=== PATIENT | male | born 1930 | race Caucasian/White ===

== ENCOUNTER 2016-06-14 11:58 | Emergency (ER) | payer MEDICARE, OTHER ==
[2016-06-14 12:13] VITALS: BP 148/81
[2016-06-14] MEDS ORDERED: Metoclopramide 10 MG/2 ML SDV IVPUSH ONE (12:28)
[2016-06-14] MEDS ORDERED: Sodium Chloride 0.9% 1,000 ML IV SCH (12:30)
--- NOTE | 2016-06-14 12:31 | EDM.PDOC ---
ED HISTORY OF PRESENT ILLNESS - General Chief Complaint: Cardiovascular Problem Stated Complaint: DIZZY Time Seen by Provider: 06/14/16 12:20 Source of Information: Reports: Patient, Family (spouse) History Limitations: Reports: No limitations - History of Present Illness INITIAL COMMENTS - FREE TEXT/NARRATIVE: 85-year-old male attends the ED accompanied by his . He reports sudden onset of severe vertigo or off kilter feeling while driving in the car. He was the passenger . He and his about driving doing various areas of her going to go to the car wash when he instructed to take him home. Was able to divide she continued to feel unwell and advised her to bring him to medical care. He stopped the [facility] and they were advised to bring him to the hospital. He denies any headache. Denies any nausea or vomiting. He can remember ever having a similar type episode. It is symptoms are improved if he is not moving. Is not walked over since symptoms developed. He was it got into a wheelchair from the car and wheeled into the hospital. He denies any recent falls or head injuries. No recent changes to his medications. Somewhat worried about his pacemaker as he is due to have it replaced due to low battery. Currently has been in place for about 10 years. Symptom Onset Date: 06/14/16 Symptom Onset Time: 11:30 Timing/Duration: Reports: Minutes:, Sudden onset Severity: moderate - Related Data Allergies/ADRs: Allergies Allergy/AdvReac Type Severity Reaction Status Date / Time codeine Allergy "BLACKED Verified 06/14/16 12:13 OUT" Penicillins Allergy "BLACKED Verified 06/14/16 12:13 OUT" Home Meds: Home Meds Aspirin [Ecotrin] 81 mg PO DAILY 09/01/14 [History] Lisinopril [Lisinopril] 5 mg PO DAILY 09/01/14 [History] Loratadine [Claritin] 10 mg PO DAILY 09/01/14 [History] Nitroglycerin [Nitrostat] 0.4 mg SL ASDIRECTED PRN 09/01/14 [History] Omeprazole [Omeprazole] 20 mg PO DAILY 09/01/14 [History] Pravastatin [Pravachol] 40 mg PO DAILY 09/01/14 [History] Sertraline [Zoloft] 50 mg PO DAILY 09/01/14 [History] Meclizine [Antivert] 12.5 mg PO TID #15 tablet 06/14/16 [Rx] Past Medical History Cardiovascular History: Reports: Hypertension, Pacemaker Other Gastrointestinal History: Hx of gastric ulcers, none now (had surgery) Other Musculoskeletal History: Muscle aches - Past Surgical History Cardiovascular Surgical History: Reports: Carotid stents, Coronary artery bypass , Pacer Other Cardiovascular Surgeries/Procedures: Pacemaker placement Other GI Surgeries/Procedures: Gastric ulcer surgery in 90ies Social & Family History - Living Situation & Occupation Living situation: Reports: , with spouse Occupation: retired ED ROS GENERAL - Review of Systems Review Of Systems: See Below Constitutional: Reports: weakness. Denies: fever, chills, malaise, fatigue, decreased appetite, weight loss HEENT: Reports: Vertigo, Vision change. Denies: Ear pain, Eye pain, Hearing loss, Nosebleed, Sinus problem, Throat pain Respiratory: Denies: Shortness of Breath (Feels blurry it hard to focus. Social with the vertigo symptoms), Wheezing, Pleuritic Chest Pain, Cough, Sputum Cardiovascular: Reports: Blood pressure problem (Mild hypertension well controlled with medication), Other (Has a pacemaker in place x10 years. Apparently the battery is quite low and he is due to have it changed.). Denies : Chest pain Endocrine: Reports: no symptoms GI/Abdominal: Denies: Abdominal pain, Anorexia, Nausea, Stool incontinence, Vomiting : Reports: frequency, other (Nocturia usually 3 times nightly) Musculoskeletal: Reports: back pain, joint pain Skin: Reports: no symptoms (Knee pain and hip pain at times sometimes in his neck and shoulders as well) Neurological: Reports: Dizziness (Vertigo this morning. Occurred while driving in a motor vehicle as a passenger.), Headache. Denies: Confusion, Seizure, Syncope Psychiatric: Reports: No symptoms Hematologic/Lymphatic: Reports: no symptoms Immunologic: Reports: no symptoms ED EXAM, GENERAL - Physical Exam Exam: See Below Exam Limited By: No limitations General Appearance: alert, WD/WN, no apparent distress Eye Exam: bilateral eye: nystagmus (Mild on right lateral gaze.), PERRL, other ( No diplopia on exam. No gaze palsy. He does have slight ptosis of his left upper eyelid.) Ears: other (There is cerumen impaction bilaterally worse on the left and I cannot visualize the tympanic membrane on the left side. Visualized portions of the tympanic membrane on the right are normal. Ears are going to require irrigation.) Throat/Mouth: Normal inspection, Normal lips, Normal teeth, Normal oropharynx, Other (Uvula normal) Head: atraumatic, normocephalic Neck: normal inspection, supple, non-tender, full range of motion. No: carotid bruit, lymphadenopathy (L), lymphadenopathy (R), thyromegaly Respiratory/Chest: no respiratory distress, lungs clear, normal breath sounds, no accessory muscle use, other ( pacemaker left upper anterior chest.) Cardiovascular: normal peripheral pulses, regular rate, rhythm (Monitor shows 100% paced rhythm at 60 per minute), no edema, no murmur Peripheral Pulses: 1+: posterior tibial (L), posterior tibial (R), dorsalis pedis (L), dorsalis pedis (R) GI/Abdominal: normal bowel sounds, soft, non tender, no organomegaly, no distention Back Exam: normal inspection, full range of motion. No: CVA tenderness (L), CVA tenderness (R) Extremities: normal inspection, normal range of motion, non-tender, no pedal edema, normal capillary refill Neurological: alert, oriented, CN II-XII intact, normal cognition, normal gait, no motor/sensory deficits, other (Absent ankle jerks. No problems with finger to nose rapid alternating movements. Cranial nerves 2-12 are intact. Nodes of CVA. Power tone upper and lower extremities is normal.). No: memory loss remote events, abnormal reflexes Psychiatric: normal affect, normal mood Skin Exam: Warm, Dry, Intact, Normal color, No rash EKG INTERPRETATION EKG Date: 06/14/16 Time: 12:55 Rhythm: other (100% AV paced rhythm at 60 per minute) Rate (beats/min): 60 [place]: LAD-left axis deviation (-82) P-wave: absent QRS: wide ST-T: normal QT: prolonged EKG Interpretation Comments: No Further analysis attempted due to to 100% paced rhythm. Course - Vital Signs Last Recorded V/S: Last Vital Signs Temp 37.0 C 06/14/16 12:07 Pulse 66 06/14/16 12:07 Resp 16 06/14/16 12:07 BP 148/81 H 06/14/16 12:07 Pulse Ox 98 06/14/16 12:07 - Orders/Labs/Meds Orders: Active Orders 24 hr Category Date Time Status EKG Documentation Completion [RC] STAT Care 06/14/16 12:34 Active Ear Irrigation [RC] ASDIRECTED Care 06/14/16 12:29 Active Sodium Chloride 0.9% [Normal Saline] 1,000 ml Med 06/14/16 12:30 Active IV ASDIRECTED Medication Orders Sodium Chloride (Normal Saline) 1,000 mls @ 150 mls/hr IV ASDIRECTED NANCI Last Admin: 06/14/16 12:47 Dose: 150 mls/hr Labs: Laboratory Tests 06/14/16 06/14/16 06/14/16 Range/Units 12:39 12:39 12:39 WBC 5.80 (4.23-9.07) K/mm3 RBC 4.69 (4.63-6.08) M/mm3 Hgb 14.0 (13.7-17.5) gm/L Hct 42.9 (40.1-51.0) % MCV 91.5 (79.0-92.2) fl MCH 29.9 (25.7-32.2) pg MCHC 32.6 (32.2-35.5) g/dl RDW Std Deviation 43.4 (35.1-43.9) fL Plt Count 182 (163-337) K/mm3 MPV 9.9 (9.4-12.3) fl Neutrophils % (Manual) 64 H (40-60) % Band Neutrophils % 1 (0-10) % Lymphocytes % (Manual) 24 (20-40) % Atypical Lymphs % 0 % Monocytes % (Manual) 8 (2-10) % Eosinophils % (Manual) 3 (0.8-7.0) % Basophils % (Manual) 0 L (0.2-1.2) Platelet Estimate Adequate RBC Morph Comment Normal Sodium 143 (136-145) mEq/L Potassium 3.8 (3.5-5.1) mEq/L Chloride 107 (98-107) mEq/L Carbon Dioxide 28 (21-32) mEq/L Anion Gap 11.8 (5-15) BUN 15 (7-18) mg/dL Creatinine 1.2 (0.7-1.3) mg/dL Est Cr Clr Drug Dosing 42.52 mL/min Estimated GFR (MDRD) 57 (>60) mL/min BUN/Creatinine Ratio 12.5 L (14-18) Glucose 72 L (83-115) mg/dL Calcium 8.9 (8.5-10.1) mg/dL Magnesium 2.3 (1.8-2.4) mg/dl Total Bilirubin 1.1 H (0.2-1.0) mg/dL AST 14 L (15-37) U/L ALT 17 (16-63) U/L Alkaline Phosphatase 91 (46-116) U/L CK-MB (CK-2) 1.2 (0-3.6) ng/ml Troponin I 0.021 (0.00-0.056) ng/mL C-Reactive Protein < 0.2 (<1.0) mg/dL Total Protein 7.3 (6.4-8.2) g/dl Albumin 4.0 (3.4-5.0) g/dl Globulin 3.3 gm/dL Albumin/Globulin Ratio 1.2 (1-2) Meds: Medications Generic Name Dose Route Start Last Admin Trade Name Freq PRN Reason Stop Dose Admin Sodium Chloride 1,000 mls @ 150 mls/hr 06/14/16 12:30 06/14/16 12:47 Normal Saline IV 150 mls/hr ASDIRECTED NANCI Administration Discontinued Medications Generic Name Dose Route Start Last Admin Trade Name Freq PRN Reason Stop Dose Admin Metoclopramide HCl 7.5 mg 06/14/16 12:28 06/14/16 12:48 Reglan IVPUSH 06/14/16 12:29 7.5 mg ONETIME ONE Administration - Radiology Interpretation Free Text/Narrative:: 85-year-old male presents the ED with sudden onset of vertigo symptoms. He recognizes is hard to focus and felt for a period of time that he may have had some diplopia. However he is eye examination shows no gaze palsy he does have some mild my statements somewhat lateral and upward gaze. The remainder of his neural exam is completely normal. He has cerumen impaction in both ears that could be causing some of the vertigo. Pituitary on the left side. Plan is to the CT of his head done with routine lab work including a troponin. We'll have his ear is irrigated with warm water. Treated with normal saline at 150 mils per hour and Reglan 7.5 mg IV. Once his ears have been irrigated will try and get him up walking and see how he does with his balance. - Re-Assessments/Exams Free Text/Narrative Re-Assessment/Exam: 06/14/16 13:14 CT head reveals age-appropriate changes with small vessel ischemic changes in the basal ganglia. No infarcts or bleeding is evident. No cerebellar infarct identified. 06/14/16 13:51 lab work is back and shows a normal white count at 5.80 with a normal differential. Hemoglobin is 14.0 with hematocrit of 42.9. Platelets normal 182,000. Chemistry is normal other than gross low-normal at 72. Nurses are still struggling trying to get the wax out of his left ear canal. Will use 50-50 hydrogen peroxide and water and see how that works. Also give him something to drink and eat to raise his blood sugar. Once the ear wax is cleared from his left ear canal we'll get him up walking and see how his balance is . 06/14/16 14:52 patient had good luck on removal of the cerumen impaction bilaterally. Come up walking he had no difficulties walking or problems with gait or ataxia. He will therefore be discharged home. He will use Antivert 12.5 mg every 8 hours for the next 5 days if he develops any further attacks of vertigo. If he doesn't develop any further attacks then I would leave well enough alone as the cerumen impaction is been relieved out of his left ear. Departure - Departure Time of Disposition: 14:52 Disposition: Home, Self-Care 01 Condition: fair Clinical Impression: Benign paroxysmal positional vertigo of left ear Prescriptions: Meclizine [Antivert] 12.5 mg PO TID #15 tablet Referrals: To Bland MD [Primary Care Provider] - Forms: ED Department Discharge Additional Instructions: Evaluation in the emergency room today in regards to development of sudden onset of vertigo a sense of being off balance and trouble focusing vision. This occurred while driving a motor vehicle. Lab tests were all normal and CT of the brain also proved to be negative for any pathology. There are age-appropriate changes in the brain. We did identify significant cerumen impaction against the eardrum on the left side. Catheters were therefore irrigated to remove as much lung as possible as this sometimes can be a cause of the vertigo. At this point I would like to adopt a wait and see approach. If further vertigo symptoms continue such as getting in and out of bed then fill prescription for Antivert and take 12.5 mg every 8 hours for the next 5 days to settle the vertigo event down. 85% of patients are usually better within 5 days from the time of onset. Of note that she did this once you're likely to get it again in the future. - My Orders Last 24 Hours: My Active Orders 06/14/16 12:29 Ear Irrigation [RC] ASDIRECTED 06/14/16 12:30 Sodium Chloride 0.9% [Normal Saline] 1,000 ml IV ASDIRECTED 06/14/16 12:34 EKG Documentation Completion [RC] STAT - Assessment/Plan Last 24 Hours: My Active Orders 06/14/16 12:29 Ear Irrigation [RC] ASDIRECTED 06/14/16 12:30 Sodium Chloride 0.9% [Normal Saline] 1,000 ml IV ASDIRECTED 06/14/16 12:34 EKG Documentation Completion [RC] STAT
--- NOTE | 2016-06-14 13:23 | CT ---
Head CT Technique: Multiple axial sections through the brain were obtained. Intravenous contrast was not utilized. Comparison: Previous head CT study of 11/10/12. Findings: Ventricles along with basal cisterns and sulci over the convexities are moderately prominent. Diminished density is noted within portions of the periventricular and subcortical white matter which is compatible with small vessel ischemic demyelination change. No other abnormal parenchymal densities are seen. No evidence of intracranial hemorrhage. No midline shift or mass effect is seen. Visualized sinuses are clear. No acute calvarial abnormality is seen. Impression: 1. Senescent change as described above which has slightly progressed from previous exam. 2. No acute intracranial abnormality is identified on noncontrast head CT study. Diagnostic code #2
== END 2016-06-14 15:00 | disposition home or self-care (01) ==
LOC: JD.ED 11:58
DX: H81.12 Benign paroxysmal vertigo, left ear (principal); I10 Essential (primary) hypertension; Z95.1 Presence of aortocoronary bypass graft; Z98.890 Other specified postprocedural states; Z79.82 Long term (current) use of aspirin; Z79.899 Other long term (current) drug therapy; Z88.0 Allergy status to penicillin; Z88.5 Allergy status to narcotic agent
CPT/HCPCS: 36415; 69210; 70450; 80053; 82553; 83735; 84484; 85025; 86140; 93005; 96361; 96374; 99285; J2765; J7040; 69209; 99284

== ENCOUNTER 2016-06-15 19:57 | Inpatient (IN) | payer MEDICARE, OTHER ==
[2016-06-15] MEDS ORDERED: Ondansetron 4 MG/2 ML SDV IVPUSH ONE (20:10)
--- NOTE | 2016-06-15 20:17 | EDM.PDOC ---
ED HPI NEURO - General Chief Complaint: Neuro Symptoms/Deficits Stated Complaint: [facility] Time Seen by Provider: 06/15/16 20:01 Source of Information: Reports: Patient, Family History Limitations: Reports: No limitations - History of Present Illness INITIAL COMMENTS - FREE TEXT/NARRATIVE: This is an 85-year-old male. Tonight his noted that he was complaining of being lightheaded like he was going to pass out. He was wobbly on his feet and she tried to get into the car but he couldn't make it. When he sat down in a chair she noted that his legs were jerking a little bit and he closed his eyes but she doesn't think he passed out. At that time she did not check his pulse. He was noted then to be hard to arouse though he was breathing appropriately. She called the ambulance when they arrived he was awake he was talking he though he might have been slightly confused and they noted some mild drooping to the left side of his face. When he arrived in the ER he seemed to be oriented to place to did not know the month but thought it was August or September. Does not appear to be in acute distress he is not complaining of a headache. He is moving all 4 extremities. The tells me that she is concerned about his pacemaker because the battery might be low since he's had it for 10 years and is due to be replaced. The patient was seen yesterday for episode of vertigo when he was a passenger in a car that his was driving he was evaluated in the ER yesterday for those symptoms. Tonight on the way to the ER and arrival to the ER he had nausea and vomiting that resolved with Zofran. He denies any dizziness at this time. He appears to be conversational and he recognizes his and he is in no acute distress. It should be noted that yesterday he was noted by the ER physician to have some mild drooping of the left upper eyelid which is still present tonight. The faint drooping of the left side of his face and mouth has resolved at this time. It resolved about 10 minutes after arrival. He has at no time any extremity weakness or flaccidness. His NIH score is 3 point arrival. When I asked the patient what he meant by dizziness and gave him the option of the room spinning versus lightheaded like he was going to pass out he said he was lightheaded like he was going to pass out. - Related Data Allergies/ADRs: Allergies Allergy/AdvReac Type Severity Reaction Status Date / Time codeine AdvReac "BLACKED Verified 06/15/16 20:09 OUT" Penicillins AdvReac "BLACKED Verified 06/15/16 20:09 OUT" Home Meds: Home Meds Aspirin [Ecotrin] 81 mg PO DAILY 09/01/14 [History] Lisinopril [Lisinopril] 5 mg PO DAILY 09/01/14 [History] Loratadine [Claritin] 10 mg PO DAILY 09/01/14 [History] Nitroglycerin [Nitrostat] 0.4 mg SL ASDIRECTED PRN 09/01/14 [History] Omeprazole [Omeprazole] 20 mg PO DAILY 09/01/14 [History] Pravastatin [Pravachol] 40 mg PO DAILY 09/01/14 [History] Sertraline [Zoloft] 50 mg PO DAILY 09/01/14 [History] Meclizine [Antivert] 12.5 mg PO TID #15 tablet 06/14/16 [Rx] Past Medical History Cardiovascular History: Reports: Hypertension, Pacemaker Other Gastrointestinal History: Hx of gastric ulcers, none now (had surgery) Other Musculoskeletal History: Muscle aches - Past Surgical History Cardiovascular Surgical History: Reports: Carotid stents, Coronary artery bypass , Pacer Other Cardiovascular Surgeries/Procedures: Pacemaker placement Other GI Surgeries/Procedures: Gastric ulcer surgery in 90ies Social & Family History - Tobacco Use Smoking Status *Q: Never Smoker - Caffeine Use Caffeine Use: Reports: Soda - Recreational Drug Use Recreational Drug Use: No - Living Situation & Occupation Living situation: Reports: , with spouse Occupation: retired ED ROS GENERAL - Review of Systems Review Of Systems: See Below Constitutional: Denies: fever, chills HEENT: Reports: Vertigo. Denies: Eye discharge, Eye pain Respiratory: Denies: Shortness of Breath, Cough Cardiovascular: Denies: Chest pain, Edema GI/Abdominal: Reports: Nausea, Vomiting. Denies: Abdominal pain, Diarrhea : Reports: no symptoms Musculoskeletal: Reports: other (Denies any extremity weakness) Skin: Reports: no symptoms Neurological: Reports: Confusion, Dizziness. Denies: Headache, Syncope, Trouble Speaking Psychiatric: Reports: No symptoms Hematologic/Lymphatic: Reports: no symptoms ED EXAM, NEURO - Physical Exam Exam: See Below Exam Limited By: No limitations General Appearance: alert, WD/WN, no apparent distress Eye Exam: left eye: proptosis (He is noted to have some ptosis of the left upper eyelid I was noted yesterday as well), bilateral eye: normal inspection, PERRL, vision changes (States he sees fine right now), other (Sitting at approximately 30 and moving his head to the left and to the right he did not experience any sort of dizziness and there was no noted nystagmus) Ears: normal external exam, normal canal, normal TMs Nose: normal inspection Throat/Mouth: Normal voice, No airway compromise, Other (Initially when he came in he seemed to have a slight droop to the left side of his mouth when he showed his teeth but that has resolved at this time) Head Exam: atraumatic, normocephalic. No: facial swelling Neck: normal inspection, supple, non-tender. No: carotid bruit Respiratory/Chest: no respiratory distress, lungs clear, normal breath sounds, other (Pace maker is in the left anterior chest) Cardiovascular: regular rate, rhythm, no murmur, other (Pace maker is noted in the left anterior chest) GI/Abdominal: normal bowel sounds, soft, non tender. No: tender Neurological: alert, other (Initially patient had a difficult time with orientation as to time frame though he knew he was in the hospital, he guessed 86 for his age was actually 85 he was correct about his time being 63 years. Initially again he seemed to have some mild drooping when he first came in to the ER of the left side of his mouth when he showed his teeth however within 5-10 minutes of being here that seemed to resolve. Is not appear to have any weakness in his upper or lower extremities and has full function. Reflexes in the lower extremities appear to be intact, NIH score done by the nurse was 3. ) Back Exam: full range of motion Extremities: normal inspection, normal range of motion, no pedal edema Psychiatric: normal affect, normal mood. No: anxious Skin Exam: Warm, Dry EKG INTERPRETATION EKG Date: 06/15/16 Time: 20:00 Rhythm: other (This is an AV dual paced rhythm appears to have good capture on the EKG) EKG Interpretation Comments: Dual pacemaker with complete capture on the EKG, cannot permit any acute changes with a pacemaker. Course - Vital Signs Last Recorded V/S: Last Vital Signs Temp 97.4 F 06/15/16 20:03 Pulse 77 06/15/16 20:03 Resp 18 06/15/16 20:03 BP 176/101 H 06/15/16 20:03 Pulse Ox 94 L 06/15/16 20:03 - Orders/Labs/Meds Orders: Active Orders 24 hr Category Date Time Status EKG 12 Lead [EKG Documentation Completion] [RC] STAT Care 06/15/16 20:04 Active Head wo Cont [CT] Stat Exams 06/15/16 20:02 Taken Labs: Laboratory Tests 06/15/16 06/15/16 06/15/16 Range/Units 20:01 20:01 20:01 WBC 8.02 (4.23-9.07) K/mm3 RBC 4.70 (4.63-6.08) M/mm3 Hgb 14.0 (13.7-17.5) gm/L Hct 42.7 (40.1-51.0) % MCV 90.9 (79.0-92.2) fl MCH 29.8 (25.7-32.2) pg MCHC 32.8 (32.2-35.5) g/dl RDW Std Deviation 43.9 (35.1-43.9) fL Plt Count 194 (163-337) K/mm3 MPV 9.6 (9.4-12.3) fl Neut % (Auto) 48.5 (34.0-67.9) % Lymph % (Auto) 37.7 (21.8-53.1) % [place] % (Auto) 11.2 (5.3-12.2) % Eos % (Auto) 2.0 (0.8-7.0) Baso % (Auto) 0.5 (0.1-1.2) % Neut # (Auto) 3.89 (1.78-5.38) K/mm3 Lymph # (Auto) 3.02 (1.32-3.57) K/mm3 [place] # (Auto) 0.90 H (0.30-0.82) K/mm3 Eos # (Auto) 0.16 (0.04-0.54) K/mm3 Baso # (Auto) 0.04 (0.01-0.08) K/mm3 PT 10.2 (8.0-13.0) SECONDS INR 0.94 Sodium 144 (136-145) mEq/L Potassium 3.9 (3.5-5.1) mEq/L Chloride 106 (98-107) mEq/L Carbon Dioxide 27 (21-32) mEq/L Anion Gap 14.9 (5-15) BUN 14 (7-18) mg/dL Creatinine 1.2 (0.7-1.3) mg/dL Est Cr Clr Drug Dosing 42.75 mL/min Estimated GFR (MDRD) 57 (>60) mL/min BUN/Creatinine Ratio 11.7 L (14-18) Glucose 99 (83-115) mg/dL POC Glucose (83-110) mg/dL Calcium 9.1 (8.5-10.1) mg/dL Total Bilirubin 0.9 (0.2-1.0) mg/dL AST 15 (15-37) U/L ALT 17 (16-63) U/L Alkaline Phosphatase 98 (46-116) U/L Troponin I < 0.017 (0.00-0.056) ng/mL Total Protein 7.5 (6.4-8.2) g/dl Albumin 4.2 (3.4-5.0) g/dl Globulin 3.3 gm/dL Albumin/Globulin Ratio 1.3 (1-2) /06/27 Range/Units 20:06 WBC (4.23-9.07) K/mm3 RBC (4.63-6.08) M/mm3 Hgb (13.7-17.5) gm/L Hct (40.1-51.0) % MCV (79.0-92.2) fl MCH (25.7-32.2) pg MCHC (32.2-35.5) g/dl RDW Std Deviation (35.1-43.9) fL Plt Count (163-337) K/mm3 MPV (9.4-12.3) fl Neut % (Auto) (34.0-67.9) % Lymph % (Auto) (21.8-53.1) % [place] % (Auto) (5.3-12.2) % Eos % (Auto) (0.8-7.0) Baso % (Auto) (0.1-1.2) % Neut # (Auto) (1.78-5.38) K/mm3 Lymph # (Auto) (1.32-3.57) K/mm3 [place] # (Auto) (0.30-0.82) K/mm3 Eos # (Auto) (0.04-0.54) K/mm3 Baso # (Auto) (0.01-0.08) K/mm3 PT (8.0-13.0) SECONDS INR Sodium (136-145) mEq/L Potassium (3.5-5.1) mEq/L Chloride (98-107) mEq/L Carbon Dioxide (21-32) mEq/L Anion Gap (5-15) BUN (7-18) mg/dL Creatinine (0.7-1.3) mg/dL Est Cr Clr Drug Dosing mL/min Estimated GFR (MDRD) (>60) mL/min BUN/Creatinine Ratio (14-18) Glucose (83-115) mg/dL POC Glucose 101 (83-110) mg/dL Calcium (8.5-10.1) mg/dL Total Bilirubin (0.2-1.0) mg/dL AST (15-37) U/L ALT (16-63) U/L Alkaline Phosphatase (46-116) U/L Troponin I (0.00-0.056) ng/mL Total Protein (6.4-8.2) g/dl Albumin (3.4-5.0) g/dl Globulin gm/dL Albumin/Globulin Ratio (1-2) Meds: Medications Discontinued Medications Generic Name Dose Route Start Last Admin Trade Name Freq PRN Reason Stop Dose Admin Ondansetron HCl 4 mg 06/15/16 20:10 06/15/16 20:02 Zofran IVPUSH 06/15/16 20:11 4 mg ONETIME ONE Administration - Radiology Interpretation Free Text/Narrative:: CT scan of the head shows chronic changes with no acute intercranial process. Looking at this and the CT scan done yesterday they appear to be very similar - Re-Assessments/Exams Free Text/Narrative Re-Assessment/Exam: 06/15/16 20:43 When the patient first arrived to the ER and was placed on a monitor he appeared to have a heart rate in the 40s but went directly up into the 60s with full capture. He's had dual chamber pacemaker it appeared to have good capture on the EKG and the monitor though initially the heart rate might have been well. The is very concerned about his pacemaker because it is 10 years old and it is due to be changed by his merchandising stock associate Dr. Aburto. 06/15/16 20:45 We attempted to interrogate the pacemaker with the new machine that we have here in the ER but it failed to function properly. 06/15/16 21:43 A called [facility] requesting to speak to a neurosurgeon but one call connected me with a neurologist because everything goes through the neurologist. When I spoke to Dr. Restrepo the neurologist and gave him the complete history of the events prior to coming to the ER and in the ER itself. He stated that if these symptoms have resolved there is nothing more to do and the patient needs to be in for observation and do an echo of his heart and carotid studies. I asked the neurologist if a neurosurgeon wasn't available for consult and he indicated that he is the first line or admission and it is no neurosurgeon for me to talk to at this time. 06/15/16 22:[address] Burton initially and she felt the patient should go to [facility] to see the interventionalist Dr. Wilcox because of the possibility of a TIA. I called [facility] one call and I spoke to a Dr. Restrepo, you can see the conversation above. Then I spoke to Dr. Wilcox and since there is a possibility of a TIA tonight he wanted the patient to go to [place] but not by airplane but by ground. I then spoke to the hospitalist Dr. Garcia who was concerned about the travel time for this patient but because Dr. Wilcox wanted him admitted to the internal medicine doctor agreed to accept the patient in transport to [facility] in [place]. I then spoke to the family and they were concerned about the trip to [place] and whether it was absolutely necessary. I gave him the information from my talk with the doctors in [facility]. I then spoke to their son who is an qa lead in [place] and they would prefer the patient not to go to [place] and would like him admitted to this facility for observation. I then spoke to Dr. Burton explaining the entire situation and she agrees to admit the patient for monitoring and further evaluation. Departure - Departure Time of Disposition: 22:45 Disposition: Admitted As Inpatient 65 Condition: good Clinical Impression: Pre-syncope TIA (transient ischemic attack) Qualifiers: Transient cerebral ischemia type: unspecified Qualified Code(s): G45.9 - Transient cerebral ischemic attack, unspecified Pacemaker complications Qualifiers: Encounter type: initial encounter Qualified Code(s): T82.9XXA - Unspecified complication of cardiac and vascular prosthetic device, implant and graft, initial encounter Additional Instructions: I spoke to Dr. Burton she is willing to accept the patient for admission to this facility. - My Orders Last 24 Hours: My Active Orders 06/15/16 20:02 Head wo Cont [CT] Stat 06/15/16 20:04 EKG 12 Lead [EKG Documentation Completion] [RC] STAT - Assessment/Plan Last 24 Hours: My Active Orders 06/15/16 20:02 Head wo Cont [CT] Stat 06/15/16 20:04 EKG 12 Lead [EKG Documentation Completion] [RC] STAT
[2016-06-15] MEDS ORDERED: Enoxaparin 30 MG/0.3 ML Syringe SUBCUT ONE (23:45)
--- NOTE | 2016-06-16 09:15 | PCM.HP ---
H&P History of Present Illness - General Date of Service: 06/16/16 Admit Problem/Dx: Admission Diagnosis/Problem Admission Diagnosis/Problem TIA, Transient ischemic attack Source of Information: Patient, Family History Limitations: Reports: No limitations - History of Present Illness Initial Comments - Free Text/Narative: 85 year old male PMH CAD/CABG denies a prior history of TIA/CVA presents after an episode of confusion. He has generalized weakness, at this time his face is symmetrical. He had facial asymmetry noted by his , she reported it as left sided. This was not noted on physical exam by the ED staff or hospitalist service. 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 The working diagnosis was TIA cf pacemaker malfunction. However ECG documents appropriate capture. He was to have been transferred to [facility] accepted by Dr Wilcox; this was cancelled after the patient and family decided not to travel the distance. The patient and his spouse discussed the option of staying versus signing out against medical advice. He has decided to stay for more additional testing as part of the CVA protocol. Onset of Symptoms: Reports: sudden Symptom Onset Date: 06/15/16 Duration of Symptoms: Reports: Hour(s):, Getting worse Location: Reports: generalized Severity: moderate Improves with: Reports: None Worsens with: Reports: None Associated Symptoms: Reports: confusion, nausea/vomiting, other (vertigo) - Related Data Allergies/Adverse Reactions: Allergies Allergy/AdvReac Type Severity Reaction Status Date / Time codeine AdvReac "BLACKED Verified 06/15/16 20:09 OUT" Penicillins AdvReac "BLACKED Verified 06/15/16 20:09 OUT" Home Medications: Home Meds Lisinopril 5 mg PO DAILY 09/01/14 [History] Nitroglycerin [Nitrostat] 0.4 mg SL ASDIRECTED PRN 09/01/14 [History] Omeprazole 20 mg PO DAILY 09/01/14 [History] Pravastatin [Pravachol] 40 mg PO DAILY 09/01/14 [History] Aspirin [Ecotrin] 325 mg PO DAILY #10 tab.ec 06/17/16 [Rx] Enoxaparin [Lovenox] 40 mg SUBCUT DAILY #10 syringe 06/17/16 [Rx] hydrALAZINE [Apresoline] 20 mg IVPUSH Q8H PRN #14 sdv 06/17/16 [Rx] Past Medical History Cardiovascular History: Reports: Hypertension, Pacemaker Other Gastrointestinal History: Hx of gastric ulcers, none now (had surgery) Other Musculoskeletal History: Muscle aches Psychiatric History: Reports: Dementia - Past Surgical History Cardiovascular Surgical History: Reports: Carotid stents, Coronary artery bypass , Pacer Other Cardiovascular Surgeries/Procedures: Pacemaker placement Other GI Surgeries/Procedures: Gastric ulcer surgery in 90ies Social & Family History - Family History Family Medical History: Noncontributory - Tobacco Use Smoking Status *Q: Never Smoker Second Hand Smoke Exposure: No - Caffeine Use Caffeine Use: Reports: Other Other Caffeine Use: rarely will have a soda or coffee - Recreational Drug Use Recreational Drug Use: No - Living Situation & Occupation Living situation: Reports: , with spouse Occupation: retired H&P Review of Systems - Review of Systems: Review Of Systems: See Below General: Reports: weakness HEENT: Reports: no symptoms Pulmonary: Reports: No Symptoms Cardiovascular: Reports: no symptoms Gastrointestinal: Reports: No symptoms Genitourinary: Reports: no symptoms Musculoskeletal: Reports: no symptoms Skin: Reports: no symptoms Psychiatric: Denies: confusion Neurological: Reports: Confusion, Dizziness, Weakness, Other (vertigo) Hematologic/Lymphatic: Reports: no symptoms Immunologic: Reports: no symptoms Exam - Exam Exam: See Below - Vital Signs Vital Signs: Last Vital Signs Temp 37.0 C 06/16/16 07:54 Pulse 60 06/16/16 07:54 Resp 16 06/16/16 07:54 BP 158/99 H 06/16/16 07:54 Pulse Ox 94 L 06/16/16 07:54 Weight: 66.814 kg - Exam Quality Assessment: DVT prophylaxis General: alert, oriented, cooperative HEENT: Conjunctiva clear, EOMI, Nares patent, Normal nasal septum, Pupils equal , Pupils reactive, PERRLA Neck: supple, trachea midline Lungs: Normal respiratory effort Cardiovascular: regular rate, regular rhythm Abdomen: normal bowel sounds, soft (Male) Exam: Deferred Rectal (Males) Exam: Deferred Back Exam: normal inspection Extremities: normal pulses Skin: warm Neurological: cranial nerves intact, reflexes equal bilateral, strength equal bilateral Neuro Extensive - Mental Status: alert, oriented x3, normal mood/affect, normal cognition, memory intact Neuro Extensive - Motor, Sensory, Reflexes: CN II-XII intact Psychiatric: alert, normal affect, normal mood - Patient Data Result Diagrams: 06/17/16 03:06 06/17/16 03:06 *Q Meaningful Use (ADM) - VTE *Q VTE Criteria *Q: - Stroke *Q Stroke Criteria *Q: - AMI *Q AMI Criteria *Q: - Problem List (1) Pre-syncope SNOMED Code(s): 565246710 ICD Code: R55 - SYNCOPE AND COLLAPSE Status: Acute Current Visit: Yes (2) TIA (transient ischemic attack) SNOMED Code(s): 029010136, 575445372 ICD Code: G45.9 - TRANSIENT CEREBRAL ISCHEMIC ATTACK, UNSPECIFIED Status: Acute Current Visit: Yes Qualifiers: Transient cerebral ischemia type: unspecified Qualified Code(s): G45.9 - Transient cerebral ischemic attack, unspecified Problem List Initiated/Reviewed/Updated: Yes Orders Last 24hrs: Active Orders 24 hr Category Date Time Status Admission Status [Patient Status] [ADT] Routine ADT 06/16/16 00:11 Active Antiembolic Devices [RC] PER UNIT ROUTINE Care 06/15/16 23:25 Active Aspiration Precautions [RC] ASDIRECTED Care 06/15/16 23:16 Active Bedrest [RC] ASDIRECTED Care 06/15/16 23:27 Active Neuro Check [RC] Q4HR Care 06/15/16 23:24 Active Consult to Occupational Therapy [OT Evaluation and Cons 06/16/16 09:01 Active Treatment] [CONS] Routine Consult to Physical Therapy [PT Evaluation and Cons 06/16/16 09:00 Active Treatment] [CONS] Routine NPO Now [Nothing per Oral Now Diet] [DIET] Diet 06/16/16 Breakfast Active CBC W/O DIFF,HEMOGRAM [HEME] MOTH@0700 Lab 06/18/16 07:00 Ordered CBC W/O DIFF,HEMOGRAM [HEME] MOTH@0700 Lab 06/21/16 07:00 Ordered CBC W/O DIFF,HEMOGRAM [HEME] MOTH@0700 Lab 06/25/16 07:00 Ordered CBC W/O DIFF,HEMOGRAM [HEME] MOTH@0700 Lab 06/28/16 07:00 Ordered CBC W/O DIFF,HEMOGRAM [HEME] MOTH@0700 Lab 07/02/16 07:00 Ordered CBC W/O DIFF,HEMOGRAM [HEME] MOTH@0700 Lab 07/05/16 07:00 Ordered Antiembolic Hose [OM.PC] Routine Oth 06/15/16 23:25 Ordered Code Status [Resuscitation Status] Routine Resus Stat 06/16/16 00:09 Ordered Assessment/Plan Comment:: Impression: TIA Hypertension Hyperlipidemia CAD, history of CABG S/P PPM approaching KERWIN Plan: CVA protocol Consult SW/CM/PT/OT Neurochecks Aspiration precautions DVT/GI prophylaxis
[2016-06-16] MEDS ORDERED: Nitroglycerin 0.4 MG Tab.SL SL PRN (18:34)
[2016-06-16] MEDS ORDERED: Aspirin 325 MG Tab.EC PO SCH (18:45)
[2016-06-16] MEDS ORDERED: hydrALAZINE 20 MG/ML SDV IVPUSH PRN (20:26)
[2016-06-16] MEDS ORDERED: diphenhydrAMINE 25 MG Cap PO SCH (21:00)
[2016-06-16] MEDS ORDERED: Meclizine 12.5 MG Tab PO SCH (21:00)
[2016-06-16] MEDS ORDERED: Simvastatin 20 MG Tab PO SCH (21:00)
[2016-06-16] MEDS ORDERED: Lisinopril 5 MG Tab PO SCH (21:00)
[2016-06-17 02:34] VITALS: BP 151/74
[2016-06-17] MEDS ORDERED: Pantoprazole 40 MG Tab.CR PO SCH (07:00)
[2016-06-17] MEDS ORDERED: Lisinopril 5 MG Tab PO SCH (09:00)
[2016-06-17] MEDS ORDERED: Simvastatin 20 MG Tab PO SCH (09:00)
[2016-06-17] MEDS ORDERED: Enoxaparin 40 MG/0.4 ML Syringe SUBCUT SCH (09:00)
--- NOTE | 2016-06-17 15:16 | PCM.DCSUM1 ---
Discharge Summary - Hospital Course HPI Initial Comments: 85 year old male was transferred to [facility] after a change in his neuro exam by the midnight nurse, Rosalba; the last unremarkable exam was around midnight. Between [id number], the patient was assessed and more confused, a focal neuro exam was noted. He had had similar complaints 18-24 hours prior to the current presentation. He was admitted as a TIA evaluation, originally he was accepted for transfer by Dr Wilfredo Wilcox, neurosurgeon/neuro- interventionalist at [facility]. However the patient and family declined and the patient remained at [facility]. The change in neuro status resulted in a call to [facility] once again for TIA/CVA work up and treatment not available in [place]. He was accepted for transfer for a higher level of neuro care at approximately 0415 hour. Accepting neurologist is Dr Restrepo, the remaining logistics was provided by the [employer] who apparently had taken the previous call when the family declined transfer. Prior to my arrival, I spoke to Dr Huang Figueroa who was kind enough to monitor and assess the patient. Upon arrival after my assessment, the patient was moved to a room closer to the nurses station. His spouse had been notified, and upon arrival a 5 minute/brief meeting ensued which resulted in pursuit of transfer to [place] for a higher level of care for a TIA/CVA as previously mentioned. Exam: RLE weakness, right sided facial droop, garbled speech; stroke scale, 8. CT of the head without contrast was repeated before transfer was unremarkable for a CVA. The patient has a PPM and history of CAD/CABG. Primary Dx TIA/CVA Condition Stable Activity Bedrest Diet NPO Meds See list on APR Disposition Transfer to [facility] Neurology/Neurosurgery care - Discharge Data Discharge Date: 06/17/16 Discharge Disposition: DC/Tfer to Acute Hospital 02 Condition: Good - Discharge Diagnosis/Problem(s) (1) Pre-syncope SNOMED Code(s): 465299997 ICD Code: R55 - SYNCOPE AND COLLAPSE Status: Acute (2) TIA (transient ischemic attack) SNOMED Code(s): 125761640, 748666096 ICD Code: G45.9 - TRANSIENT CEREBRAL ISCHEMIC ATTACK, UNSPECIFIED Status: Acute Qualifiers: Transient cerebral ischemia type: unspecified Qualified Code(s): G45.9 - Transient cerebral ischemic attack, unspecified - Patient Summary/Data Consults: Consultations 06/16/16 09:00 Consult to Physical Therapy [PT Evaluation and Treatment] [CONS] Routine 06/16/16 09:01 Consult to Occupational Therapy [OT Evaluation and Treatment] [CONS] Routine 06/16/16 10:00 Consult to Speech Language Pathology [MANAGER CLEANING Evaluation and Treatment] [CONS] Routine - Patient Instructions Diet: NPO Activity: Bedrest Driving: Do Not Drive Showering/Bathing: No Showering - Discharge Plan Prescriptions/Med Rec: Aspirin [Ecotrin] 325 mg PO DAILY #10 tab.ec Enoxaparin [Lovenox] 40 mg SUBCUT DAILY #10 syringe hydrALAZINE [Apresoline] 20 mg IVPUSH Q8H PRN #14 sdv PRN Reason: SBP>160 Home Medications: Home Meds Lisinopril 5 mg PO DAILY 09/01/14 [History] Nitroglycerin [Nitrostat] 0.4 mg SL ASDIRECTED PRN 09/01/14 [History] Omeprazole 20 mg PO DAILY 09/01/14 [History] Pravastatin [Pravachol] 40 mg PO DAILY 09/01/14 [History] Aspirin [Ecotrin] 325 mg PO DAILY #10 tab.ec 06/17/16 [Rx] Enoxaparin [Lovenox] 40 mg SUBCUT DAILY #10 syringe 06/17/16 [Rx] hydrALAZINE [Apresoline] 20 mg IVPUSH Q8H PRN #14 sdv 06/17/16 [Rx] Referrals: To Bland MD [Primary Care Provider] - - Discharge Summary/Plan Comment DC Time >30 min.: Yes (Transfer to [facility] for CVA) - General Info Date of Service: 06/16/16 Functional Status: Reports: urinating - Review of Systems General: Reports: Other (lethargic with garbled speech) HEENT: Reports: no symptoms Pulmonary: Reports: no symptoms Cardiovascular: Reports: No Symptoms Gastrointestinal: Reports: No symptoms Genitourinary: Reports: no symptoms Musculoskeletal: Reports: no symptoms Skin: Reports: no symptoms Neurological: Reports: Confusion, Trouble Speaking, Weakness Psychiatric: Reports: no symptoms - Patient Data Vitals - Most Recent: Last Vital Signs Temp 36.6 C 06/17/16 02:25 Pulse 72 06/17/16 02:25 Resp 16 06/17/16 02:25 BP 151/74 H 06/17/16 02:25 Pulse Ox 96 06/17/16 02:25 Weight - Most Recent: 66.814 kg I&O - Last 24 hours: Intake & Output 06/16/16 06/17/16 06/17/16 22:59 06:59 14:59 Intake Total 720 300 Output Total 1050 Balance -330 300 Lab Results - Last 24 hrs: Laboratory Results - last 24 hr 06/17/16 06/17/16 Range/Units 03:06 03:06 WBC 7.08 (4.23-9.07) K/mm3 RBC 4.75 (4.63-6.08) M/mm3 Hgb 14.0 (13.7-17.5) gm/L Hct 43.1 (40.1-51.0) % MCV 90.7 (79.0-92.2) fl MCH 29.5 (25.7-32.2) pg MCHC 32.5 (32.2-35.5) g/dl RDW Std Deviation 42.8 (35.1-43.9) fL Plt Count 176 (163-337) K/mm3 MPV 9.9 (9.4-12.3) fl Neut % (Auto) 72.2 H (34.0-67.9) % Lymph % (Auto) 17.9 L (21.8-53.1) % Sargent % (Auto) 8.3 (5.3-12.2) % Eos % (Auto) 0.8 (0.8-7.0) Baso % (Auto) 0.7 (0.1-1.2) % Neut # (Auto) 5.10 (1.78-5.38) K/mm3 Lymph # (Auto) 1.27 L (1.32-3.57) K/mm3 Sargent # (Auto) 0.59 (0.30-0.82) K/mm3 Eos # (Auto) 0.06 (0.04-0.54) K/mm3 Baso # (Auto) 0.05 (0.01-0.08) K/mm3 Sodium 140 (136-145) mEq/L Potassium 3.7 (3.5-5.1) mEq/L Chloride 103 (98-107) mEq/L Carbon Dioxide 29 (21-32) mEq/L Anion Gap 11.7 (5-15) BUN 12 (7-18) mg/dL Creatinine 1.2 (0.7-1.3) mg/dL Est Cr Clr Drug Dosing 41.08 mL/min Estimated GFR (MDRD) 57 (>60) mL/min BUN/Creatinine Ratio 10.0 L (14-18) Glucose 136 H (83-115) mg/dL Calcium 9.2 (8.5-10.1) mg/dL Triglycerides 82 (<150) mg/dL Cholesterol 162 (<200) mg/dL LDL Cholesterol Direct 104 H* (<100) mg/dL HDL Cholesterol 50.0 (40-59) mg/dL TSH 3rd Generation 3.553 (0.358-3.74) uIU/mL Med Orders - Current: Current Medications Discontinued Medications Aspirin (Ecotrin) 325 mg PO DAILY [facility] Last Admin: 06/16/16 18:56 Dose: 325 mg Diphenhydramine HCl (Benadryl) 25 mg PO BID [facility] Last Admin: 06/16/16 21:07 Dose: 25 mg Enoxaparin Sodium (Lovenox) 30 mg SUBCUT ONETIME ONE Stop: 06/15/16 23:46 Last Admin: 06/15/16 23:54 Dose: 30 mg Enoxaparin Sodium (Lovenox) 40 mg SUBCUT DAILY [facility] Hydralazine HCl (Apresoline) 20 mg IVPUSH Q8H PRN PRN Reason: Hypertension Lisinopril (Prinivil) 5 mg PO DAILY [facility] Lisinopril (Prinivil) 5 mg PO BEDTIME [facility] Last Admin: 06/16/16 21:07 Dose: 5 mg Meclizine HCl (Antivert) 12.5 mg PO TID [facility] Last Admin: 06/16/16 21:07 Dose: 12.5 mg Nitroglycerin (Nitrostat) 0.4 mg SL ASDIRECTED PRN PRN Reason: Chest Pain Ondansetron HCl (Zofran) 4 mg IVPUSH ONETIME ONE Stop: 06/15/16 20:11 Last Admin: 06/15/16 20:02 Dose: 4 mg Pantoprazole Sodium (Protonix) 40 mg PO DAILY@0700 [facility] Simvastatin (Zocor) 20 mg PO DAILY [facility] Simvastatin (Zocor) 20 mg PO BEDTIME [facility] Last Admin: 06/16/16 21:07 Dose: 20 mg - Exam Quality Assessment: Reports: DVT prophylaxis General: Reports: lethargic HEENT: Reports: Pupils equal, Pupils reactive Neck: Reports: trachea midline Lungs: Reports: Normal respiratory effort Cardiovascular: Reports: Regular Rate, Regular Rhythm Abdomen: Reports: bowel sounds present, soft, no tenderness, no distension (Male) Exam: Deferred Rectal (Males) Exam: Deferred Back Exam: Reports: normal inspection Extremities: Reports: normal pulses Skin: Reports: warm Neurological: Reports: cranial nerves intact, other (localizes pain) Psy/Mental Status: Reports: other (lethargic) *Q Meaningful Use (DIS) - VTE *Q VTE Criteria *Q: - Stroke *Q Stroke Criteria *Q: - AMI *Q AMI Criteria *Q:
--- NOTE | 2016-06-18 10:33 | CT ---
Head CT Technique: Multiple axial sections through the brain were obtained. Intravenous contrast was not utilized. Comparison: Previous head CT study of 06/15/16. Findings: Ventricles along with basal cisterns and sulci over the convexities are moderately prominent. Diminished density noted within the periventricular white matter compatible with small vessel ischemic demyelination change. No other abnormal parenchymal densities are seen. No evidence of intracranial hemorrhage. No midline shift or mass effect is seen. Visualized sinuses are clear. No acute calvarial abnormality is appreciated. Impression: 1. Senescent change as described above. Nothing acute is identified on noncontrast head CT study. No appreciable change is seen from prior head CT exam. Diagnostic code #2 I agree with preliminary report issued by [employer] (preliminary report dictated on 06/17/16, 4:48 AM Central Time)
--- NOTE | 2016-06-18 10:33 | CT ---
Head CT Technique: Multiple axial sections through the brain were obtained. Intravenous contrast was not utilized. Comparison: Previous head CT study of 06/14/16. Findings: Ventricles along with basal cisterns and sulci over the convexities are moderately prominent. Diminished density noted within portions of the periventricular and subcortical white matter which is compatible with small vessel ischemic demyelination change. No other abnormal parenchymal densities are seen. No evidence of intracranial hemorrhage. No midline shift or mass effect is seen. Bone window settings were reviewed which show the visualized sinuses to appear clear. No calvarial abnormality is appreciated. Impression: 1. Senescent change. Nothing acute is identified on noncontrast head CT study. No significant change is appreciated from prior head CT exam. Diagnostic code #2 I agree with preliminary report issued by [employer] (report finalized on 06/15/16, 9:24 PM Central Time)
== END 2016-06-17 04:30 | DRG 69 ==
LOC: JD.ED 19:57 → JD.MS 22:47
PROVIDERS: ADMIT Internal Medicine Cardiovascular Disease; ATTEND Internal Medicine Cardiovascular Disease
DX: G45.9 Transient cerebral ischemic attack, unspecified (principal); I25.810 Atherosclerosis of coronary artery bypass graft(s) without angina pectoris; T82.9XXA Unspecified complication of cardiac and vascular prosthetic device, implant and graft, initial encounter; R55 Syncope and collapse; E78.5 Hyperlipidemia, unspecified; Z95.1 Presence of aortocoronary bypass graft; I10 Essential (primary) hypertension; Z95.0 Presence of cardiac pacemaker; Z79.82 Long term (current) use of aspirin; Z79.899 Other long term (current) drug therapy; Z88.0 Allergy status to penicillin; Z88.8 Allergy status to other drugs, medicaments and biological substances
CPT/HCPCS: 36415; 70450; 80053; 82962; 84484; 85025; 85610; 93005; 96374; 99285; J2405; 80048; 80061; 84443; 92610-GN; 97161-GP; A9270-GY; J1650